=== PATIENT | male | born 1955 | race Caucasian/White ===

== ENCOUNTER → 2017-04-18 | Outpatient (CLI) | payer BC ==
[2017-04-18 09:43] LABS: HEMOGLOBIN 14.9 g/dL (13.5-17.0); HGB HCT DIFFERENCE -0.3; MEAN CORPUSCULAR HEMOGLOBIN 30.9 pg (27.0-33.4); MEAN CORPUSCULAR VOLUME 94 fl (80-97); RED BLOOD COUNT 4.82 10^6/uL (4.35-5.55); RED CELL DISTRIBUTION WIDTH 12.2 % (11.5-14.0)
[2017-04-18 10:27] LABS: ALANINE AMINOTRANSFERASE 19 U/L (21-72); ALBUMIN 4.4 g/dL (3.5-5.0); ALKALINE PHOSPHATASE 75 U/L (38-126); ANION GAP 11 (5-19); ASPARTATE AMINO TRANSFERASE 18 U/L (17-59); BLOOD UREA NITROGEN 17 mg/dL (7-20); CALCIUM 9.5 mg/dL (8.4-10.2); CARBON DIOXIDE 30 mmol/L (22-30); CHLORIDE 103 mmol/L (98-107); CHOLESTEROL 201.59 mg/dL (0-200); CREATININE RESULT 0.86 mg/dL (0.52-1.25); Direct HDL 57 mg/dL (>40); GLUCOSE 99 mg/dL (75-110); IRON 151.5 ug/dL (49-181); MAGNESIUM 2.1 mg/dL (1.6-2.3); POTASSIUM 4.3 mmol/L (3.6-5.0); SODIUM 143.7 mmol/L (137-145); TOTAL PROTEIN 7.3 g/dL (6.3-8.2); TRIGLYCERIDES 83 mg/dL (<150)
[2017-04-18 10:48] LABS: DIRECT LDL 133 mg/dL (<100)
[2017-04-18 11:17] LABS: BILIRUBIN,DIRECT 0.4 mg/dL (0.0-0.4); BILIRUBIN,TOTAL 1.9 mg/dL (0.2-1.3)
[2017-04-18 11:21] LABS: FOLATE 9.33 ng/mL (>2.76)
[2017-04-19 07:22] LABS: VITAMIN D 25-HYDROXY 17.4 ng/mL (30.0-100.0)
== END ==
LOC: OD 08:47
PROVIDERS: ATTEND Specialist
DX: E46 Unspecified protein-calorie malnutrition (principal); K91.2 Postsurgical malabsorption, not elsewhere classified; E11.8 Type 2 diabetes mellitus with unspecified complications; E78.2 Mixed hyperlipidemia
CPT/HCPCS: 36415; 80053; 80061; 82306; 82607; 82746; 83036; 83540; 83735; 83970; 84207; 85027

== ENCOUNTER → 2019-06-05 | Outpatient (CLI) | payer MEDICARE ==
[2019-06-05 15:39] LABS: BLOOD UREA NITROGEN 12 mg/dL (7-20)
== END ==
LOC: OD 14:24
PROVIDERS: ATTEND Speech-Language Pathologist
DX: M48.061 Spinal stenosis, lumbar region without neurogenic claudication (principal)
CPT/HCPCS: 36415; 82565; 84520